=== PATIENT | female | born 1965 | race Caucasian/White ===

== ENCOUNTER 2024-02-17 23:46 | Emergency (ER) | payer BC ==
[~2024-02-17] VITALS: Ht 165.1 cm; Wt 95.3 kg
[~2024-02-17 23:46] MED LIST: ATIVAN0.5 MG PO; CELEXA10 MG PO; PRINIVIL10 MG PO; SYNTHROID0.15 MG PO
[2024-02-18 02:04] LABS: BASO % 0.4 % (0.0-1.0); EOS % 0.6 % (1.0-4.0); HEMATOCRIT 40.1 % (37.0-47.0); LYMPH # 1.4 10*3/uL (1.3-4.4); LYMPH % 19.6 % (27.0-41.0); MEAN CELL VOLUME 83.2 fl (81.0-99.0); MEAN CORPUSCULAR HGB 27.6 pg (27.0-31.0); MEAN CORPUSCULAR HGB CONC 33.2 g/dl (33.0-37.0); MEAN PLATELET VOLUME 9.4 fl (9.6-12.3); MONO # 0.4 10*3/uL (0.1-1.0); MONO % 6.4 % (3.0-9.0); NEUT % 72.6 % (47.0-73.0); PLATELET COUNT AUTOMATED 262 10*3/uL (130-400); RED BLOOD COUNT 4.82 10*6/uL (4.10-5.10); RED CELL DISTRI WIDTH 12.9 % (0-14.5); WHITE BLOOD COUNT 6.9 10*3/uL (4.8-10.8)
[2024-02-18 02:21] LABS: BUN 9 mg/dl (9-23); CHLORIDE 101 mmol/L (98-107); POTASSIUM 3.2 mmol/L (3.4-5.1)
[2024-02-18] MEDS ORDERED: CLARITIN10 MG PO (04:21)
[2024-02-18] MEDS ORDERED: LORATADINE 10 MG TAB PO ONE (04:25)
== END 2024-02-18 04:25 | disposition home or self-care (01) ==
LOC: ED 23:46
PROVIDERS: Emergency Medicine
DX: U07.1 COVID-19 (principal); F41.0 Panic disorder [episodic paroxysmal anxiety]; F41.9 Anxiety disorder, unspecified; I10 Essential (primary) hypertension; Z90.49 Acquired absence of other specified parts of digestive tract; Z98.890 Other specified postprocedural states

== ENCOUNTER 2025-01-02 00:28 | Inpatient (IN) | payer BC ==
[~2025-01-02] VITALS: Ht 165.1 cm; Wt 99.8 kg
[2025-01-02] VITALS (8 sets, daily range): BP systolic 106–143; BP diastolic 43–70
[~2025-01-02 00:28] MED LIST changes: +CLARITIN10 MG PO
[2025-01-02 01:09] LABS: BASO # 0.0 10*3/uL (0.0-0.1); BASO % 0.5 % (0.0-1.0); EOS # 0.1 10*3/uL (0.0-0.4); EOS % 1.5 % (1.0-4.0); MEAN CELL VOLUME 83.6 fl (81.0-99.0); MEAN CORPUSCULAR HGB 27.9 pg (27.0-31.0); MEAN PLATELET VOLUME 10.0 fl (9.6-12.3); MONO # 0.3 10*3/uL (0.1-1.0); MONO % 4.4 % (3.0-9.0); NEUT # 5.1 10*3/uL (2.3-7.9); NEUT % 68.2 % (47.0-73.0); NUCLEATED RED BLOOD CELL 0.0 % (0.0-0.0); NUCLEATED RED BLOOD CELL 0.0 10*3/uL (0.0-0.0); PLATELET COUNT AUTOMATED 275 10*3/uL (130-400); RED CELL DISTRI WIDTH 13.2 % (0-14.5)
[2025-01-02 01:31] LABS: BUN 12 mg/dl (9-23); SGPT/ALT 14 U/L (5-49)
[2025-01-02] MEDS ORDERED: ATORVASTATIN CA20 M1 PO (06:06)
[2025-01-02] MEDS ORDERED: ESCITALOPRAM OX20 MG PO (06:07)
[2025-01-02] MEDS ORDERED: BISACODYL 5 MG TAB PO PRN (06:10)
[2025-01-02] MEDS ORDERED: ACETAMINOPHEN 325 MG TAB PO PRN (06:10)
[2025-01-02] MEDS ORDERED: ACETAMINOPHEN 650 MG SUPP R PRN (06:10)
[2025-01-02] MEDS ORDERED: BISACODYL 10 MG SUPP R PRN (06:10)
[2025-01-02] MEDS ORDERED: Acetaminophen/Hydrocodone 5 MG/325 MG TABLET PO PRN (08:10)
[2025-01-02] MEDS ORDERED: DEXTROSE 50% 25 GM/50 ML VIAL IV PRN (08:50)
[2025-01-02] MEDS ORDERED: Technetium Tc 99M Tetrofosmi 0.23 MG KIT IJ SCH (09:10)
[2025-01-02] MEDS ORDERED: ASPIRIN ENTERIC COATED 81 MG TAB PO SCH (10:00)
[2025-01-02] MEDS ORDERED: ESCITALOPRAM OXALATE 20 MG TAB PO SCH (10:00)
[2025-01-02] MEDS ORDERED: LORATADINE 10 MG TAB PO SCH (10:00)
[2025-01-02] MEDS ORDERED: ATORVASTATIN CALCIUM 20 MG TAB PO SCH (10:00)
[2025-01-02] MEDS ORDERED: LISINOPRIL 10 MG TAB PO SCH (10:00)
[2025-01-02] MEDS ORDERED: INSULIN LISPRO 1 UNIT/0.01 ML SQ SCH (11:30)
[2025-01-02] MEDS ORDERED: IOHEXOL 350 MG/ML 100 ML VIAL IV ONE (14:50)
[2025-01-02] MEDS ORDERED: SODIUM CHLORIDE 0.9% 100 ML BAG IV ONE (14:50)
[2025-01-03] VITALS: BP 135/65
[2025-01-03] MEDS ORDERED: Regadenoson 0.4 MG/5 ML SYR IV ONE (06:17)
[2025-01-03 06:33] LABS: BASO # 0.0 10*3/uL (0.0-0.1); BASO % 0.4 % (0.0-1.0); EOS # 0.2 10*3/uL (0.0-0.4); EOS % 2.2 % (1.0-4.0); MEAN CELL VOLUME 84.3 fl (81.0-99.0); MEAN CORPUSCULAR HGB 27.4 pg (27.0-31.0); MEAN PLATELET VOLUME 10.0 fl (9.6-12.3); MONO # 0.4 10*3/uL (0.1-1.0); MONO % 5.7 % (3.0-9.0); NEUT # 4.1 10*3/uL (2.3-7.9); NEUT % 60.1 % (47.0-73.0); NUCLEATED RED BLOOD CELL 0.0 % (0.0-0.0); NUCLEATED RED BLOOD CELL 0.0 10*3/uL (0.0-0.0); PLATELET COUNT AUTOMATED 263 10*3/uL (130-400); RED CELL DISTRI WIDTH 13.4 % (0-14.5)
[2025-01-03 07:01] LABS: VITAMIN D, 25-HYDROXY 39.8 ng/mL (30-100)
[2025-01-03 07:02] LABS: BUN 12 mg/dl (9-23); FREE T4 1.44 ng/dl (0.89-1.76); LDL CHOLESTEROL 81 mg/dL (9-159)
[2025-01-03 08:00] VITALS: BP 128/64
[2025-01-03] MEDS ORDERED: Ondansetron Hydrochloride 4 MG/2 ML VIAL ONE (09:28)
[2025-01-03 12:00] VITALS: BP 123/51
== END 2025-01-03 16:00 | disposition home or self-care (01) | DRG 638 ==
LOC: ED 00:28 → EDHOLD 06:06 → 5E 06:06
PROVIDERS: Emergency Medicine; Student in an Organized Health Care Education/Training Program; ADMIT Family Medicine; ATTEND Family Medicine
PROC: 4A02XM4 Measurement of Cardiac Total Activity, External Approach (ICD-10-PCS; principal; 2025-01-03)
PROC: 3E073KZ Introduction of Other Diagnostic Substance into Coronary Artery, Percutaneous Approach (ICD-10-PCS; 2025-01-03)
DX: E11.65 Type 2 diabetes mellitus with hyperglycemia (principal); E87.1 Hypo-osmolality and hyponatremia; K21.9 Gastro-esophageal reflux disease without esophagitis; R74.8 Abnormal levels of other serum enzymes; F32.A Depression, unspecified; I10 Essential (primary) hypertension; E78.5 Hyperlipidemia, unspecified; F41.9 Anxiety disorder, unspecified; E89.0 Postprocedural hypothyroidism; E66.9 Obesity, unspecified; Z90.49 Acquired absence of other specified parts of digestive tract; Z79.899 Other long term (current) drug therapy; Z68.36 Body mass index [BMI] 36.0-36.9, adult